=== PATIENT | female | born 1980 | race Caucasian/White ===

== ENCOUNTER 2016-09-15 18:37 | Emergency (ER) | payer MEDICAID ==
[2016-09-15 19:28] LABS: BASOPHILS 0 % (0-2); EOSINOPHILS 0.1 % (0-7); HEMATOCRIT 35.6 % (36.0-48.0); HEMOGLOBIN 12.1 g/dL (12-16); IMMATURE GRANULOCYTES 0.5 % (0-5); LYMPHOCYTES 6.3 % (15-50); MCH 32.2 pg (26.0-34.0); MCV 94.7 fL (80.0-100.0); MEAN PLATELET VOLUME 9.1 fL (7.4-10.4); MONOCYTES 7.9 % (2-11); NEUTROPHILS 85.2 % (40-80); PLATELET COUNT 238 10x3/uL (130-400); RBC 3.76 10x6/uL (4.00-5.40); RDW 12.6 % (11.5-14.5); WBC 20.6 10x3/uL (4.8-10.8)
[2016-09-15 22:17] LABS: ALBUMIN 2.9 g/dL (3.4-5.0); ALKALINE PHOSPHATASE 71 U/L (46-116); ALT (SGPT) 15 U/L (10-68); BILIRUBIN - TOTAL 0.24 mg/dL (0.2-1.3); CALC OSMOLALITY 266 mosm/kg (275-300); CARBON DIOXIDE 22.5 mmol/L (21.0-32.0); CHLORIDE - SERUM 102 mmol/L (98-107); CREATININE - SERUM 0.6 mg/dL (0.6-1.3); GLUCOSE 117 mg/dL (74-106); POTASSIUM - SERUM 3.7 mmol/L (3.5-5.1); PROTEIN - SERUM 6.6 g/dL (6.4-8.2); SODIUM 134 mmol/L (136-145); UREA NITROGEN 7 mg/dL (7-18); eGFR NON AFRICAN AMERICAN > 90 mL/min (90-120)
== END 2016-09-15 22:51 | disposition home or self-care (01) ==
LOC: D.ER 18:37
PROVIDERS: Emergency Medicine; Physician Assistant
DX: O26.892 Other specified pregnancy related conditions, second trimester (principal); Z3A.19 19 weeks gestation of pregnancy; R05 Cough; R50.9 Fever, unspecified; F17.200 Nicotine dependence, unspecified, uncomplicated

== ENCOUNTER → 2016-11-17 11:52 | Outpatient (CLI) | payer MEDICAID | END | disposition home or self-care (01) | LOC: D.LDO 11:52 | DX: O36.8130 Decreased fetal movements, third trimester, not applicable or unspecified (principal); Z3A.28 28 weeks gestation of pregnancy ==

== ENCOUNTER 2017-02-02 05:00 | Inpatient (IN) | payer MEDICAID ==
[2017-02-02] VITALS (11 sets, daily range): BP systolic 108–139; BP diastolic 61–78; BMI 30.9
[2017-02-02] MEDS ORDERED: PRENATAL COMPLE1 TAB PO (05:43)
[2017-02-02 06:18] LABS: HEMATOCRIT 35.9 % (36.0-48.0); MCH 30.4 pg (26.0-34.0); MCHC 33.4 g/dL (31.0-37.0); MCV 90.9 fL (80.0-100.0); MEAN PLATELET VOLUME 10.6 fL (7.4-10.4); RBC 3.95 10x6/uL (4.00-5.40); RDW 13.5 % (11.5-14.5); WBC 10.7 10x3/uL (4.8-10.8)
[2017-02-02 06:29] LABS: APPEARANCE HAZY (CLEAR); BILIRUBIN NEGATIVE (NEGATIVE); COLOR YELLOW (YELLOW); GLUCOSE NEGATIVE (NEGATIVE); KETONE NEGATIVE (NEGATIVE); NITRITE NEGATIVE (NEGATIVE); PROTEIN NEGATIVE (NEGATIVE); UROBILINOGEN NORMAL (NORMAL)
[2017-02-02 06:30] LABS: AMORPHOUS SEDIMENT <1+ /lpf (NONE SEEN); BACTERIA MANY /hpf (NONE SEEN); GRANULAR CAST RARE /lpf (NONE SEEN); MUCUS <1+ /lpf (NONE SEEN); WHITE CELLS - URINE 0-5 /hpf (0-5)
[2017-02-02 20:31] LABS: BASOPHILS 0.1 % (0-2); EOSINOPHILS 0.1 % (0-7); HEMATOCRIT 29.4 % (36.0-48.0); HEMOGLOBIN 9.7 g/dL (12-16); IMMATURE GRANULOCYTES 0.3 % (0-5); LYMPHOCYTES 11.8 % (15-50); MCH 30.7 pg (26.0-34.0); MEAN PLATELET VOLUME 10.4 fL (7.4-10.4); MONOCYTES 11.3 % (2-11); NEUTROPHILS 76.4 % (40-80); PLATELET COUNT 224 10x3/uL (130-400); RBC 3.16 10x6/uL (4.00-5.40); RDW 13.7 % (11.5-14.5)
[2017-02-02 20:47] LABS: APTT 28.2 SECONDS (22.8-39.4); INR 1.11 (0.85-1.17); PROTIME 14.2 SECONDS (11.6-15.0)
[2017-02-02 21:02] LABS: D-DIMER-QUANTITATIVE 9.69 ug/mLFEU (0.20-0.54)
--- NOTE | 2017-02-02 21:37 | NUR ---
NS WITH 20 UNITS PITOCIN HUNG TO INFUSE VIA PUMP AT 125 CC/HR TO EXISTING 18 G IN LEFT HAND. NO REDNESS OR EDEMA NOTED TO SITE.
--- NOTE | 2017-02-02 21:38 | NUR ---
200 ML CONCENTRATED ROYAL URINE EMPTIED FROM GUZMAN CATH
--- NOTE | 2017-02-02 21:47 | NUR ---
CHIRAG CARE PERFORMED. FUNDUS FIRM AND ML @ U/-3. LOCHIA RUBRA SCANT. PT CLEANED WITH WARM WET WASHCLOTHES. CHUX CHANGED. CHIRAG PADS CHANGED.
--- NOTE | 2017-02-02 21:55 | NUR ---
FRESH SPRITE PROVIDED TO PT.
--- NOTE | 2017-02-02 23:00 | NUR ---
RN TO PT BS FOR I&O'S. PT RESTING IN BED IN HIGH FOWLERS POSITION, HOLDING . PT IN NO ACUTE DISTRESS. #3 UNIT OF PRBC'S COMPLETE. I&O'S WNL.
--- NOTE | 2017-02-02 23:05 | NUR ---
PT C/O PAIN, RATES 11/10. REQUESTS MEDICATION DEMEROL 100MG PROVIDED TO PT AT THIS TIME WITH FRESH SPRITE. PT DENIES ANY FURTHER NEEDS. BED IN LOW POSITION, SIDE RAILS UP TIMES 2, CALL LIGHT AND PHONE IN REACH. SO REMAINS AT PT BS FOR SUPPORT AND ASSISTANCE. REMAINS AT PT BS FOR COUPLET CARE. WILL CONT TO MONITOR PT STATUS.
[2017-02-03] VITALS (13 sets, daily range): BP systolic 119–140; BP diastolic 58–83
--- NOTE | 2017-02-03 00:05 | NUR ---
RN TO PT BS TO PERFORM ANAHI. PT RESTING IN BED IN SEMI-FOWLERS POSITION IN NO ACUTE DISTRESS. I&O'S PERFORMED, WNL. FRESH SPRITE AND CRACKERS PROVIDED TO PT. PT DENIES ANY FURTHER NEEDS. BED IN LOW POSITION, SIDE RAILS UP TIMES 2, CALL LIGHT AND PHONE IN REACH. SO REMAINS AT PT BS FOR SUPPORT AND ASSISTANCE. IN OPEN CRIB AT PT BS FOR COUPLET CARE. WILL CONT TO MONITOR PT STATUS.
--- NOTE | 2017-02-03 00:23 | NUR ---
PT IS A 37YO G5 NOW P5 WITH OF VIABLE FEMALE YESTERDAY @ 192. @ 39.1 WKS GESTATION. INFANT WITH TIGHT NUCHAL TIMES 1, CLAMPED AND CUT ON THE FIELD. FIRST DEGREE PERINEAL LACERATION WITH REPAIR. DIFFICULT REMOVAL OF PLACENTA, PLACENTA DELIVERED, NOT INTACT, MANUAL REMOVAL OF PLACENTAL FRAGMENTS BY DR. DILLARD WITH SUBSEQUENT HEMORRHAGE. CYTOTEC 1000MCG GIVEN RECTALLY BY DR. DILLARD AND 3 UNITS OF PRBC'S GIVEN TO PT IN OR DURING PPBTL. AAOX3. HR REGULAR. VS STABLE. ABDOMEN SOFT AND NON TENDER. BS ACTIVE TIMES 4. LAPROSCOPIC INCISIONS NOTED, STERI-STRIPS IN PLACE, NO REDNESS, EDEMA, OR DRAINAGE NOTED TO SITES. FUNDUS FIRM AND ML @ U/-3. LOCHIA RUBRA SMALL. PERINIUM APPEARS TO BE INTACT WITH MINIMAL SWELLING NOTED. GUZMAN IN PLACE AND DRAINING CONCENTRATED ROYAL URINE. OUTPUT WNL AT THIS TIME. 2+ EDEMA NOTED TO LOWER EXTREMITIES BILATERALLY. NO SWELLING NOTED TO UPPER EXTREMITIES BILATERALLY. 18G IV IN PLACE TO LEFT HAND, NS WITH 20 UNITS PITOCIN INFUSING VIA PUMP AT 125CC/HR, NO REDNESS OR EDEMA NOTED TO SITE. 18G SL IN PLACE TO RIGHT AC, FLUSHED WITH 5 CC NS WITHOUT DIFFICULTY. PT TOLERATING CLEAR LIQUIDS AND HAVE ADVANCED PT TO ATTEMPTING SALTINES. PT DENIES ANY NEEDS AT THIS TIME. BED IN LOW POSITION, SIDE RAILS UP TIMES 2, CALL LIGHT AND PHONE IN REACH. WILL CONT TO MONITOR PT STATUS.
[2017-02-03 01:03] LABS: HEMATOCRIT 33.1 % (36.0-48.0); HEMOGLOBIN 11.3 g/dL (12-16); MCH 30.7 pg (26.0-34.0); MCHC 34.1 g/dL (31.0-37.0); MCV 89.9 fL (80.0-100.0); MEAN PLATELET VOLUME 10.2 fL (7.4-10.4); PLATELET COUNT 199 10x3/uL (130-400); RBC 3.68 10x6/uL (4.00-5.40); RDW 13.7 % (11.5-14.5); WBC 21.1 10x3/uL (4.8-10.8)
[2017-02-03 01:09] LABS: APTT 28.2 SECONDS (22.8-39.4); INR 1.12 (0.85-1.17); PROTIME 14.3 SECONDS (11.6-15.0)
--- NOTE | 2017-02-03 01:11 | NUR ---
RN TO PT BS FOR I&O'S AND VS. PT RESTING IN BED IN HIGH FOWLERS POSITION, . PT IN NO ACUTE DISTRESS. I&O'S WNL. VS WNL. FRESH SPRITE PROVIDED TO PT. PT DENIES ANY FURTHER NEEDS. BED IN LOW POSITION, SIDE RAILS UP TIMES 2, CALL LIGHT AND PHONE IN REACH. SO REMAINS AT PT BS FOR SUPPORT AND ASSISTANCE. REMAINS AT PT BS FOR COUPLET CARE. WILL CONT TO MONITOR PT STATUS.
[2017-02-03 01:28] LABS: LYMPHOCYTES 7 % (15-50); MONOCYTES 3 % (2-11); NEUTROPHILS 85 % (40-80); PLATELET ESTIMATE DECREASED
--- NOTE | 2017-02-03 01:48 | NUR ---
RN CALLED TO PT BS. PT REQUESTS INFANT BE TRANSPORTED TO NURSERY TO ALLOW PT TO REST. INFANT TRANSPORTED TO NURSRY VIA OPEN CRIB. REPORT GIVEN TO NURSERY RN. I&O'S PERFORMED, WILL CONT TO ALLOW PT TO REST. PT DENIES ANY FURTHER NEEDS. BED IN LOW POSITION, SIDE RAILS UP TIMES 2, CALL LIGHT AND PHONE IN REACH. SO REMAINS AT PT BS FOR SUPPORT AND ASSISTANCE. WILL CONT TO MONITOR PT STATUS.
--- NOTE | 2017-02-03 01:51 | NUR ---
0100 REPEAT LAB WNL. WILL REDRAW IN AM.
--- NOTE | 2017-02-03 03:01 | NUR ---
RN CALLED TO PT BS WITH C/O PAIN, RATES 02/10, PT REQUESTS MEDICATION. DEMEROL 100MG PO PROVIDED TO PT AT THIS TIME WITH FRESH SPRITE. I&O'S PERFORMED, WNL. VS TAKEN AND WNL. CHIRAG CARE PERFORMED. PT CLEANED WITH WET WASHCLOTHES. CHIRAG PADS CHANGED. FUNDUS FIRM AND ML @ U/-2, LOCHIA RUBRA SMALL. PT DENIES ANY FURTHER NEEDS AT THIS TIME. BED IN LOW POSITION, SIDE RAILS UP TIMES 2, CALL LIGHT AND PHONE IN REACH. SO REMAINS AT PT BS FOR SUPPORT AND ASSISTANCE. WILL CONT TO MONITOR PT STATUS.
--- NOTE | 2017-02-03 04:11 | NUR ---
RN TO PT BS TO HANG NEW BAG OF PITOCIN. PITOCIN HUNG TO INFUSE VIA PUMP AT 125CC/HR. PT RESTING IN BED IN HIGH FOWLERS POSITION INFANT. PT IN NO ACUTE DISTRESS. I&O'S PERFORMED, WNL. VS WNL. PT DENIES ANY NEEDS AT THIS TIME. BED IN LOW POSITION, SIDE RAILS UP TIMES 2, CALL LIGHT AND PHONE IN REACH. SO REMAINS AT PT BS FOR SUPPORT AND ASSISTANCE. REMAINS AT PT BS FOR COUPLET CARE. WILL CONT TO MONITOR PT STATUS.
[2017-02-03 06:11] LABS: BASOPHILS 0 % (0-2); EOSINOPHILS 0 % (0-7); HEMOGLOBIN 10.7 g/dL (12-16); IMMATURE GRANULOCYTES 0.3 % (0-5); LYMPHOCYTES 9.1 % (15-50); MCH 30.8 pg (26.0-34.0); MCHC 34.5 g/dL (31.0-37.0); MCV 89.3 fL (80.0-100.0); MEAN PLATELET VOLUME 10.7 fL (7.4-10.4); MONOCYTES 8.3 % (2-11); NEUTROPHILS 82.3 % (40-80); PLATELET COUNT 194 10x3/uL (130-400); RBC 3.47 10x6/uL (4.00-5.40); RDW 14.1 % (11.5-14.5); WBC 18.7 10x3/uL (4.8-10.8)
--- NOTE | 2017-02-03 06:18 | NUR ---
RN TO PT BS FOR I&O'S. PT RESTING IN BED IN HIGH FOWLERS POSITION IN NO ACUTE DISTRESS. I&O'S PERFORMED, WNL. VS TAKEN AND WNL. B/P STOPPED CYCLING. CHIRAG CARE PERFORMED. PT CLEANED WITH WET WASHCLOTHES, CHUX AND CHIRAG PADS CHANGED. FUNDUS FIRM AND ML @ U/-2, LOCHIA RUBRA SMALL. PT DENIES ANY FURTHER NEEDS AT THIS TIME. BED IN LOW POSITION, SIDE RAILS UP TIMES 2, CALL LIGHT AND PHONE IN REACH. SO REMAINS AT PT BS FOR SUPPORT AND ASSISTANCE. WILL CONT TO MONITOR PT STATUS.
[2017-02-03 06:24] LABS: APTT 29.1 SECONDS (22.8-39.4); INR 1.11 (0.85-1.17); PROTIME 14.1 SECONDS (11.6-15.0)
[2017-02-03 07:25] LABS: RAPID PLASMA REAGIN Non Reactive (Non Reactive)
--- NOTE | 2017-02-03 07:27 | OP ---
PATIENT NAME: MAELIE GOMES MEDICAL RECORD: [id number] :79 LOCATION:[id number] ADMISSION DATE:02/02/17 SURGEON: LA DILLARD MD DATE OF OPERATION: 02/02/2017 Delivery Note Spontaneous vaginal delivery of female infant weighing 8 pounds 8 ounces, 8 and 9 Apgars with epidural anesthesia, first degree midline laceration, repaired with 2-0 chromic suture. Upon delivery of , fundal massage was used to aid in delivery of the placenta. Placenta remained adherent to the uterine wall requiring manual exploration. Placenta was densely adherent, curette was used. The patient was under epidural anesthesia and tolerated the procedure well. Blood loss encountered was 1200 cc. After curetting the uterus and uterine atony resolved. The patient was taken to the OR for her tubal ligation as she had requested. The patient received [address] to the OR and is to receive 2 more units. TRANSINT:[id number] Voice Confirmation ID: [id number] DOCUMENT ID: [id number] LA DILLARD MD at 0727 CC: [id number] DICTATION DATE: 02/02/172129 BASKET OPERATOR: 02/02/17 2343 ADM IN [place] [id number] [place] [address]
--- NOTE | 2017-02-03 07:30 | NUR ---
Pt is awake and preparing to eat regular diet tray. Pain meds given as charted on emar. Gentle fundal massage with fundus firm at u/1, scant bleeding noted to fanny pad and no clots with massage. Sykes to bedside drain with 150ml clear urine noted. 20units pitocin in 1000NS continue to infuse per orders. Pt denies any needs at this time. Sig other at bedside.
--- NOTE | 2017-02-03 08:00 | NUR ---
PAIN REASSESSMENT CHARTED ON EMAR. PT SITTING UP IN BED ATTEMPTING TO PUT INFANT TO BREAST, DENIES NEED FOR ASSISTANCE. WILL CALL NURSE WHEN FINISHED WITH INFANT FEEDING
--- NOTE | 2017-02-03 10:20 | NUR ---
DR DILLARD NOTIFIED AND ORDERS VERIFIED, MAY REMOVE GUZMAN CATH AT THIS TIME AND D/C ONE IV SITE, SALINE LOCK CURRENT IV SITE.
--- NOTE | 2017-02-03 11:30 | NUR ---
Pain med given as charted on emar per pt request for abd cramping/pressure that she rates at 7/10. IV to left hand saline locked and right side saline lock removed with cath intact. Fundus firm with massage at u/1, light bleeding noted to fanny pad which are changed by this rn. Bowman cath with 250ml clear urine noted in collection bag. Pt ask that wait until pain med has taken some effect before removing bowman so that she will feel better about getting out of bed. Spouse at bedside, side rails up x 2 with phone and call light in reach.
--- NOTE | 2017-02-03 13:00 | NUR ---
large cup of ice with lemon [place] soda provided per request. no other needs at this time. brought to room for feeding at this time.
--- NOTE | 2017-02-03 15:43 | NUR ---
Pain med given as charted on emar, rates pain at 8/10. Sykes cath remains in place with 300ml noted to collection canister. Pt states that when her returns she wants to get up and possibly shower but ask that lights be turned out at this time so she can try and rest. Fundus firm with massage with no clots and scant bleeding noted to fanny pad. Pt moving well in bed without assistance and turns self to right tilt at this time. Side rails up x 2, phone and call light in reach. lights out as she requested. Infant in nursery at this time.
--- NOTE | 2017-02-03 16:30 | NUR ---
Pain reassesment, pt resting on her right side with eyes closed and resp even. call light in reach.
--- NOTE | 2017-02-03 17:15 | NUR ---
Visiting with her family and kids. Rates pain at 3-4/10 fundus firm at u/1 with scant bleeding noted to fanny pad. Denies needs at this time states understanding that she needs to get up and out of bed but can visit with her family at this time.
--- NOTE | 2017-02-03 19:50 | NUR ---
RN TO PT BS FOR ANAHI. PT RESTING IN BED IN HIGH FOWLERS POSITION, . PT IN NO ACUTE DISTRESS. PT IS A 37YO G5 NOW P5 WITH OF VIABLE FEMALE YESTERDAY @ 192. INFANT @ 39.1 WKS GESTATION. WITH TIGHT NUCHAL TIMES 1, CLAMPED AND CUT ON THE FIELD. FIRST DEGREE PERINEAL LACERATION WITH REPAIR. DIFFICULT REMOVAL OF PLACENTA, PLACENTA DELIVERED, NOT INTACT, MANUAL REMOVAL OF PLACENTAL FRAGMENTS BY DR. DILLARD WITH SUBSEQUENT HEMORRHAGE. CYTOTEC 1000MCG GIVEN RECTALLY BY DR. DILLARD AND 3 UNITS OF PRBC'S GIVEN TO PT IN OR DURING PPBTL. AAOX3. HR REGULAR. VS STABLE. ABDOMEN DISTENDED AND TENDER. BS HYPOACTIVE TIMES 4. LAPROSCOPIC INCISION NOTED AT UMBILICUS, STERI STRIP IN PLACE. NO REDNESS, EDEMA, OR DRAINAGE NOTED TO SITE. FUDUS FIRM AND ML @ U/-2. LOCHIA SEROUSA SMALL. PERINIUM APPEARS TO BE INTACT WITH MINIMAL SWELLING NOTED. GUZMAN IN PLACE AND DRAINING CONCENTRATED ROYAL URINE. REMOVED AT THIS TIME, TIP INTACT. 2000ML EMPTIED FROM GUZMAN BAG. 2+ EDEMA NOTED TO LOWER EXTREMITIES BILATERALLY. NO SWELLING NOTED TO UPPER EXTREMITIES. 18G SL IN PLACE TO LEFT HAND, FLUSHED AT THIS TIME WITH 5 CC NS WITHOUT DIFFICULTY, NO REDNESS, EDEMA, OR DRAINAGE NOTED TO SITE. PT TOLERATING REGULAR DIET AND LIQUIDS. PT C/O PAIN, RATES 7.10, REQUESTS MEDICATION. DEMEROL 100MG PROVIDED AT THIS TIME. POC DISCUSSED WITH PT AND SO. QUESTIONS ANSWERED. WILL CONT TO MONITOR PT STATUS AND PREPARE TO AMBULATE. BED IN LOW POSITION, SIDE RAILS AND PHONE IN REACH. SO REMAINS AT PT BS FOR SUPPORT AND ASSISTANCE. INFANT REMAINS AT PT BS FOR COUPLET CARE.
--- NOTE | 2017-02-03 20:53 | NUR ---
RN TO PT BS. PT AMBULATED TO BR WITH MODERATE ASSISTANCE. PT ABLE TO VOID. PT CLEANED SELF WITH WASHCLOTHES AND BETADINE WASHCLOTHES. CHIRAG PAD AND PANTIES PLACED. CLEAN GOWN PLACED. COMPLETE LINEN CHANGE TO BED. PT DENIES ANY FUTHER NEEDS AT THIS TIME. BED IN LOW POSITION, SIDE RAILS UP TIMES 2, CALL LIGHT AND PHONE IN REACH. FAMILY AT PT BS TIMES 3 FOR SUPPORT AND ASSISTANCE. INFANT REMAINS AT PT BS FOR COUPLET CARE. WILL CONT TO MONITOR PT STATUS.
--- NOTE | 2017-02-03 23:20 | NUR ---
SHIFT REPORT FROM NICKOLAS REID RN
--- NOTE | 2017-02-04 00:20 | NUR ---
ROUNDS MADE, PT UP IN BR AT THIS TIME, PT REQUESTS PAIN MED, PT INST TO USE CALL LIGHT WHEN BACK TO BED, PT VERBALIZES UNDERSTANDING, BABY IN OPEN CRIB CART AND FOB IN ROOM
[2017-02-04 00:31] VITALS: BP 128/58
--- NOTE | 2017-02-04 00:31 | NUR ---
PT BACK TO BED, VS OBTAINED, ADM DEMEROL PO PER MD ORDERS, SEE EMAR, PT DENIES FURTHER NEEDS, BABY TO NSY VIA OPEN CRIB CART PER THIS RN, FOB RESTING ON COUCH
--- NOTE | 2017-02-04 02:05 | NUR ---
PT AROUSES TO OPENING OF DOOR, RATES ABD PAIN 2/10, DENIES NEEDS AT THIS TIME, FOB ASLEEP ON COUCH
--- NOTE | 2017-02-04 04:27 | NUR ---
PT AWAKE, HOLDING BABY, C/O ABD CRAMPING, ADM DEMEROL PO PER MD ORDERS, SEE EMAR, SERVED FRESH H20, DENIES FURTHER NEEDS, FOB ASLEEP ON COUCH
--- NOTE | 2017-02-04 06:40 | NUR ---
PT AWAKE, RATES PAIN2/10, SALINE LOCK FLUSHED WITH 10 MLS OF NS WITH NO DIFFICULTY, PT DENIES NEEDS AT THIS TIME, FOB ASLEEP ON COUCH
[2017-02-04 07:24] VITALS: BP 133/71
--- NOTE | 2017-02-04 07:33 | NUR ---
ASSESSMENT DONE. PT SITTING UP IN BED- INFANT AT BREAST. CO PAIN- RATES PAIN AN 8 ON SCALE OF 0-10. CO CRAMPING. STATES DIFFICULTY WALKING- LEGS FEEL SWOLLEN.
--- NOTE | 2017-02-04 08:11 | NUR ---
pain medication given per request- pt requested the dosage that has been taking. pt states that she would rather stay another night. states she does not feel like "is getting around very well" due to legs feeling swollen. noted some edema in lower legs- not much change since arrival date. encouraged up to shower.
--- NOTE | 2017-02-04 08:15 | NUR ---
saline lock removed- cath intact-pressure held and bandaide applied.
--- NOTE | 2017-02-04 08:39 | NUR ---
out of shower- states feels better. up and about in room. linens changed.
--- NOTE | 2017-02-04 09:03 | NUR ---
Lillian Hdz 02/04/17 O: Patient in shower, LC leaves room. Jesse Manuel, CLC
[2017-02-04 12:23] VITALS: BP 119/58
--- NOTE | 2017-02-04 12:27 | NUR ---
co pain- states that thinks might be gas. rates pain a 10 on scale of 0-10. requesting pain medication. warm tea given and encouraged to ambulate in unit. pain med given.
--- NOTE | 2017-02-04 14:30 | NUR ---
AMBULATORY AROUND UNIT- TOLERATED WELL.
--- NOTE | 2017-02-04 16:30 | NUR ---
RESTING IN BED WITH EYES CLOSED. OPENS EYES WHEN NAME CALLED- ENCOURAGED TO WALK AROUND UNIT AGAIN.
--- NOTE | 2017-02-04 17:10 | NUR ---
AMBULATORY IN HALLWAYS. TOLERATING WELL. STATES THAT SHE IS PASSING SOME FLATUS.
[2017-02-04 18:09] VITALS: BP 122/58
--- NOTE | 2017-02-04 18:10 | NUR ---
requesting pain medication. states that cramping- sharp pain. request same dose as has been taking.
--- NOTE | 2017-02-04 19:03 | NUR ---
REPORT REC'D FROM Fatoumata MONIQUE RN. THIS RN RESUMING CARE OF THIS G5 NOW P5. PT REC'D SITTING ON EDGE OF BED CONVERSING WITH S/O AND OTHER VISITOR. DENIES NEEDS AT THIS TIME. WILL CONT TO MONITOR AND ASSIST PRN.
[2017-02-04 19:24] VITALS: BP 139/60
--- NOTE | 2017-02-04 19:24 | NUR ---
RN TO BEDSIDE. PT SITTING ON EDGE OF BED CONVERSING WITH S/O AND OTHER VISITOR. IN VISITORS ARMS RESTING QUIETLY WITH EYES CLOSED, RESPIRATIONS REGULAR AND UNLABORED, NO S/S OF DISTRESS NOTED WITH . PT RATES PAIN 2/10 AT THIS TIME, STATING "I'M NOT IN PAIN, I'M JUST SORE." VSS. FUNDUS FIRM U2 WITH SMALL AMT RUBRA LOCHIA, NO CLOTS PRESENT. PT STATES THAT SHE IS VOIDING WITHOUT DIFFICULTY AND HAS BEEN PASSING FLATUS. STERISTRIP INTACT BELOW UMBILICUS WITH NO DRAINAGE PRESENT. BREATH SOUNDS CLEAR AND EQUAL BILATERALLY, UNLABORED. BOWEL SOUNDS PRESENT AND ACTIVE X4 QUADRANTS. PT STATES THAT SHE HAS NOT HAD BM TODAY. DISCHARGE PLANS DISCUSSED WITH PT AND S/O, VERBALIZES UNDERSTANDING AND AGREEMENT. 1+ BLE EDEMA NOTED, PT REPORTS THAT EDEMA IS IMPROVED FROM YESTERDAY. NO LAIBIAL SWELLING NOTED. PT STATES THAT SHE IS USING PERIBOTTLE AND TUX WIPES WITH VOIDS. LIFTING RESTRICTIONS, INCISIONAL CARE, AND S/S OF INFECTION REVIEWED WITH PT FOR D/C, VERBALIZES UNDERSTANDING. S/O SUPPORTIVE AND ATTENTATIVE TO PT AND . BED IN LOW POSITION WITH UPPER SIDE RAILS RAISED X2. CL AND PHONE WITHIN REACH. WILL CONT TO MONITOR AND ASSIST PRN.
--- NOTE | 2017-02-04 20:29 | NUR ---
RN TO BEDSIDE. PT STATES THAT SHE IS GOING TO AMBULATE IN [place]. MILK OF MAG GIVEN PER ORDERS. SIMETHICONE GIVEN PER REQUEST FOR "GAS PAINS." ENCOURAGED TO AMBULATE ON UNIT FREQUENTLY ALSO TO HELP RELIEVE GAS PAINS, VERBALIZES UNDERSTANDING. STATES THAT SHE WALKED EARILER AND HAD "A LOT OF RELIEF FROM PAINS." S/O REMAINS AT BEDSIDE SUPPORTIVE AND ATTENTIVE TO PT AND INFANT. AT BEDSIDE RESTING QUEITLY IN OPEN CRIB, RESPIRATIONS REGULAR AND UNLABORED, NO S/S OF DISTRESS NOTED. BED IN LOW POSITION WITH UPPER SIDE RAILS RAISED X2. CL AND PHONE WITHIN REACH. WILL CONT TO MONITOR AND ASSIST PRN.
--- NOTE | 2017-02-04 21:10 | NUR ---
PT AMBULATING IN [place] WITH SPOUSE.
--- NOTE | 2017-02-04 21:47 | NUR ---
PT CALLS VIA CL. REQUESTS PAIN MEDICATION. PAIN 8/10, ABD SORENESS AND CRAMPING AND ACHING. PT STATEST THAT SHE AMBULATED ON UNIT FOR ABOUT 20 MINUTES AND PAIN INCREASED FOLLOWING ACTIVITY. DEMEROL 100 MG PO GIVEN PER ORDER AND PT REQUEST. LIGHTS TURNED OFF FOR PT TO REST. S/O REMAINS AT BEDSIDE SUPPORTIVE AND ATTENTIVE TO PT. IN NBN AT THIS TIME. BED IN LOW POSITION WITH UPPER SIDE RAILS RAISED X2. CL AND PHONE WITHIN REACH. WILL CONTINUE TO MONITOR AND ASSIST PRN.
--- NOTE | 2017-02-04 22:29 | NUR ---
PAIN REASSESSMENT COMPLETED. PT RESTING WITH EYES CLOSED. RESPIRATIONS REGULAR AND UNLABORED. NO S/S OF DISTRESS NOTEDS. S/O RESTING ON COUCH AT BEDSIDE. BED IN LOW POSITION WITH UPPER SIDE RAILS RAISED X2. CL AND PHONE WITHIN PT REACH. WILL CONT TO MONITOR AND ASSIST PRN.
--- NOTE | 2017-02-04 22:50 | NUR ---
INFANT BROUGHT TO PT FOR BREAST FEEDING. ID BANDS MATCHED. PAIN 2-310 AT THIS TIME. DENIES NEED FOR INTERVENTION. INFANT HANDED TO PT. DENIES NEED FOR ASSISTANCE. S/O REMAINS AT BEDSIDE RESTING ON COUCH. BED IN LOW POSITION WITH UPPER SIDE RAILS RAISED X2. CL AND PHONE WITHIN REACH. PT STATES THAT SHE WILL CALL IF SHE NEEDS ASSISTANCE.
[2017-02-05 00:14] VITALS: BP 121/58
--- NOTE | 2017-02-05 00:14 | NUR ---
RN TO BEDSIDE FOR ROUNDS. PT BONDING WITH INFANT. REPORTS THAT FINISHED NURSING AT 0000. VSS. FUNDUS REMAINS FIRM, U2 MIDLINE, SMALL AMT RUBRA LOCHIA NO CLOTS PRESENT. DENIES NEEDS AT THIS TIME. S/O REMAINS IN ROOM RESTING ON COUCH AT BEDSIDE. BED IN LOW POSITION WITH UPPER SIDE RAILS RAISED X2. CL AND PHONE WITHIN REACH. INFANT BACK TO NBN PER PT REQUEST. WILL CONT TO MONITOR AND ASSIST PRN.
--- NOTE | 2017-02-05 02:00 | NUR ---
RN TO BEDSIDE FOR ROUNDS. PT LAYING ON RIGHT SIDE IN SEMI FOWLERS POSITIONS. RESPIRATIONS REGULAR AND UNLABORED. NO S/S OF DISTRESS NOTED. S/O REMAIN RESTING ON COUCH AT BEDSIDE. BED IN LOW POSITION WITH UPPER SIDE RAILS RAISED X2. CL AND PHONE WITHIN REACH. INFANT IN NBN. WILL CONT TO MONITOR AND ASSIST PRN.
--- NOTE | 2017-02-05 02:35 | NUR ---
CALLED TO ROOM VIA CL. PT SITTING ON EDGE OF BED. STATES THAT SHE JUST GOT UP TO VOID. PAIN 8/10, ABD CRAMPING AND SORENESS AND BACK ACHE. REQUESTS DEMEROL, GIVEN PER REQUEST. WARMED BLANKET FROM WARMERS ALSO PLACED TO PT'S LOWER BACK FOR COMFORT, RELIEF VERBALIZED. ICE WATER GIVEN. PT DENIES ADDITIONAL NEEDS. S/O REMAINS AT BEDSIDE RESTING ON COUCH. BED IN LOW POSITION WITH UPPER SIDE RAILS RAISED X2. CL AND PHONE WITHIN REACH. WILL CONT TO MONITOR AND ASSIST PRN.
--- NOTE | 2017-02-05 03:10 | NUR ---
RN TO BEDSIDE WITH . ID BANDS MATCHED. PAIN REASSESSMENT COMPLETED. PAIN 05/13. DENIES NEEDS AT THIS TIME. BED IN LOW POSITION WITH UPPER SIDE RAIL RAISED X2. CL AND PHONE WITHIN REACH. WILL CONT TO MONITOR AND ASSIST PRN.
--- NOTE | 2017-02-05 04:20 | NUR ---
RN TO BEDSIDE FOR ROUNDS AND V/S. PT CONTINUING TO BREAST FEED . REQUESTS THAT V/S BE TAKEN ONCE FINISHED NURSING. PAIN 2/10, ABD CRAMPING AT THIS TIME. DENIES NEED FOR INTERVENTION. DENIES NEEDS AT THIS TIME. S/O REMAINS ON COUCH RESTING AT BEDSIDE. INSTRUCTED TO NOTIFY RN WHEN SHE COMPLETES FOR V/S, VERBALIZES UNDERSTANDING. BED IN LOW POSITION WITH UPPER SIDE RAILS RAISED X2. CL AND PHONE WITHIN REACH. WILL CONT TO MONITOR AND ASSIST PRN.
[2017-02-05 04:47] VITALS: BP 125/59
--- NOTE | 2017-02-05 04:47 | NUR ---
PT CALLS VIA CL. RN TO BEDSIDE. PT COMPLETED BREAST FEEDING. PAIN 1-2/10 AT THIS TIME. VSS. FUNDUS FIRM, U2 AND MIDLINE WITH SMALL AMT RUBRA LOCHIA, NO CLOTS. DENIES NEEDS AT THIS TIME. TAKEN TO NBN PER PT REQUEST FOR PT TO REST. S/O REMAINS AT BEDSIDE, CONVERSING WITH PT, SUPPORTIVE AND ATTENTATIVE. BED IN LOW POSITION WITH UPPER SIDE RAILS RAISED X2. CL AND PHONE WITHIN REACH. WILL CONT TO MONITOR AND ASSIST PRN.
--- NOTE | 2017-02-05 07:20 | NUR ---
AM ASSESSMENT COMPLETED, SEE FLOWSHEET.
[2017-02-05 07:30] VITALS: BP 139/73
--- NOTE | 2017-02-05 07:40 | NUR ---
DR. DILLARD ON UNIT, ROUNDS MADE. SPEAKING WITH PT, REGARDING PAIN CONTROL, WILL ORDER IBUPROFEN 600 MG PO EVERY 6 HOURS FOR C/O PAIN, FOR PT TO TRY BEFORE SHE IS DISCHARGED HOME. PT AGREES.
--- NOTE | 2017-02-05 07:50 | NUR ---
TO PT'S ROOM, PT IS SITTING UP IN THE BED . SIG OTHER AT BEDSIDE. PT HAS BREAKFAST TRAY ON BEDSIDE TABLE. PT DENIES OTHER NEEDS AT THIS TIME. SR UP X 2, CALL LIGHT AND PHONE WITHIN REACH.
[2017-02-05] MEDS ORDERED: IBUPROFEN600 MG PO (09:39)
--- NOTE | 2017-02-05 09:43 | NUR ---
Lillian Hdz 02/05/17 LE@8:30 S: Patient states, " is going fine, sore due to tubal, has been trying different positions because baby tends to like the left breast better then that right breast. O: Patient standing up next to bed by in crib, FOB on sofa watching television. Praised for . does take time and patience in the beginning. It's important to feed infant on demand when showing feeding cues. Explained feeding cues, benefits of skin to skin, and breast milk composition. It is normal for infant to want to feed every 2-3 hours during the day and 3-4 hours at night. Feeding on demand will help with establishing your milk supply. Supply and demand what infant takes out your body will make more of. Showed patient different positions on how to hold for feedings. Provided and explained handouts on feeding cues, positions for , waking a sleeping baby, engorgement, hand expression, what to expect the first week, and breast milk composition. Asked if her nipples are sore, patient state, "No, they are fine." Encouraged to continue to feed infant on demand when showing feeding cues. Asked if any questions, concerns, or needs, all declined. Will follow up. A: Patient appears confident with . P: Continue to feed on demand. Jesse Manuel. CLC
--- NOTE | 2017-02-05 12:00 | NUR ---
PT HAS REQUESTED PAIN MEDICATION, STATES "THE IBUPROFEN ALONG WITH THE DEMEROL HAS REALLY HELPED, BUT I AM AFRAID I'LL START HURTING AGAIN". SEE EMAR FOR ALL MEDS ADM BY THIS RN. PT IS INFANT AT THIS TIME. SR UP X2, CALL LIGHT AND PHONE WITHIN REACH. SIG OTHER AT BEDSIDE.
--- NOTE | 2017-02-05 12:45 | NUR ---
DISCHARGE INSTRUCTIONS EXPLAINED TO PT AND SIG OTHER. COPIES OF D/C INSTRUCTIONS GIVEN TO PT, ALONG WITH INFORMATION SHEETS, INSTRUCTIONS, AND PRESCRIPTION FOR IBUPROFEN 800 MG. PT DENIES QUESTIONS. PREPARING FOR DISCHARGE.
--- NOTE | 2017-02-05 13:00 | NUR ---
PT TAKEN OUT BY WHEELCHAIR, WITH INFANT IN CARSEAT BEING HELD BY MOM. VOLUNTEER TAKES PT OUT TO PRIVATE VEHICLE DRIVEN BY PT'S SIG OTHER.
== END 2017-02-05 13:00 | disposition home or self-care (01) | DRG 767 ==
LOC: D.LD 05:00
PROVIDERS: ADMIT Obstetrics & Gynecology
PROC: 0UB70ZZ Excision of Bilateral Fallopian Tubes, Open Approach (ICD-10-PCS; 2017-02-02)
PROC: 10907ZC Drainage of Amniotic Fluid, Therapeutic from Products of Conception, Via Natural or Artificial Opening (ICD-10-PCS; 2017-02-02)
PROC: 3E0P3VZ Introduction of Hormone into Female Reproductive, Percutaneous Approach (ICD-10-PCS; 2017-02-02)
PROC: 0HQ9XZZ Repair Perineum Skin, External Approach (ICD-10-PCS; 2017-02-02)
PROC: 10E0XZZ Delivery of Products of Conception, External Approach (ICD-10-PCS; principal; 2017-02-02 12:00)
DX: O69.1XX0 Labor and delivery complicated by cord around neck, with compression, not applicable or unspecified (principal); O72.0 Third-stage hemorrhage; Z3A.39 39 weeks gestation of pregnancy; Z37.0 Single live birth; O70.0 First degree perineal laceration during delivery

== ENCOUNTER → 2017-09-08 13:23 | Outpatient (CLI) | payer MEDICAID ==
[2017-02-02 05:43] VITALS: BMI 30.9
[~2017-09-08 13:23] MED LIST: IBUPROFEN600 MG PO; PRENATAL COMPLE1 TAB PO
[2017-09-09 07:39] LABS: IMMUNOGLOBULIN A 207 mg/dL (87-352)
[2017-09-10 14:26] LABS: IGG SUBCLASS 1 778 mg/dL (248-810); IGG SUBCLASS 2 229 mg/dL (130-555); IGG SUBCLASS 3 46 mg/dL (15-102); IGG SUBCLASS 4 47 mg/dL (2-96)
== END | disposition home or self-care (01) ==
LOC: D.LAB 13:00 → D.RT 14:00
PROVIDERS: Internal Medicine Pulmonary Disease
DX: J45.909 Unspecified asthma, uncomplicated (principal)

== ENCOUNTER → 2018-07-20 13:05 | Outpatient (CLI) | payer MEDICAID ==
[2017-02-02 05:43] VITALS: BMI 30.9
[2018-07-20 14:28] LABS: BASOPHILS 0.1 % (0-2); EOSINOPHILS 0.5 % (0-7); HEMATOCRIT 40.9 % (36.0-48.0); HEMOGLOBIN 13.7 g/dL (12-16); IMMATURE GRANULOCYTES 0.1 % (0-5); LYMPHOCYTES 21.2 % (15-50); MCH 31.1 pg (26.0-34.0); MCHC 33.5 g/dL (31.0-37.0); MEAN PLATELET VOLUME 9.1 fL (7.4-10.4); MONOCYTES 9.5 % (2-11); NEUTROPHILS 68.6 % (40-80); RDW 13.5 % (11.5-14.5); WBC 9.3 10x3/uL (4.8-10.8)
[2018-07-20 14:29] LABS: PLATELET COUNT 252 10x3/uL (130-400)
== END | disposition home or self-care (01) ==
LOC: D.RT 06-16 14:00 → D.RAD 06-16 14:45 → D.LAB 06-16 15:00 → D.RAD 06-22 14:00 → D.RT 13:00
PROVIDERS: ATTEND Internal Medicine Pulmonary Disease
DX: J45.909 Unspecified asthma, uncomplicated (principal)

== ENCOUNTER → 2018-11-09 09:57 | Outpatient (CLI) | payer MEDICAID ==
[2017-02-02 05:43] VITALS: BMI 30.9
[2018-11-10 13:12] LABS: ANA REFLEX - DIRECT Negative (Negative)
== END | disposition home or self-care (01) ==
LOC: D.RAD 09:57
PROVIDERS: ATTEND Internal Medicine Pulmonary Disease
DX: J44.9 Chronic obstructive pulmonary disease, unspecified (principal)

== ENCOUNTER 2019-01-25 09:16 | Day surgery (SDC) | payer MEDICAID ==
[~2019-01-25] VITALS: Ht 170.2 cm; Wt 72.7 kg
[2019-01-25 09:38] LABS: BASOPHILS 0.1 % (0-2); EOSINOPHILS 0.8 % (0-7); HEMATOCRIT 38.3 % (36.0-48.0); HEMOGLOBIN 13.2 g/dL (12-16); LYMPHOCYTES 26.3 % (15-50); MCH 31.5 pg (26.0-34.0); MCHC 34.5 g/dL (31.0-37.0); MCV 91.4 fL (80.0-100.0); MEAN PLATELET VOLUME 8.9 fL (7.4-10.4); MONOCYTES 9.1 % (2-11); NEUTROPHILS 63.7 % (40-80); PLATELET COUNT 305 10x3/uL (130-400); RBC 4.19 10x6/uL (4.00-5.40); RDW 13.7 % (11.5-14.5); WBC 7.4 10x3/uL (4.8-10.8)
[2019-01-25 09:42] LABS: APTT 28.2 SECONDS (22.8-39.4); INR 0.91 (0.85-1.17); PROTIME 11.8 SECONDS (11.6-15.0)
[2019-01-25] MEDS ORDERED: ZOLOFT50 MG PO (10:33)
[2019-01-25] MEDS ORDERED: LAMICTAL100 MG PO (10:33)
[2019-01-25] MEDS ORDERED: BUSPAR 15 MG TA15 MG PO (10:33)
[2019-01-25] MEDS ORDERED: SINGULAIR10 MG PO (10:34)
[2019-01-25 10:38] VITALS: BP 114/58; Ht 170.2 cm; Wt 72.7 kg
--- NOTE | 2019-01-25 15:28 | NUR ---
1445 IV COMPLETED & DC'ED WITH CATH INTACT. DRESSING. Edilberto ANTONIO R.N. 1450 DRESSED, AWAKE & ALERT. GIVEN DISCHARGE INFORMATION INCLUDING MED REC, RTC APPT., [facility] DISCHARGE INSTRUCTIONS & POST BRONCHOSCOPY D/C INSTRUCTIONS. PT VOICED UNDERSTANDING. TO PRIVATE CAR PER WHEELCHAIR BY STAFF. HOME WITH MR. GOMES. Edilberto ANTONIO R.N.
[2019-01-25 18:17] LABS: EOS BF 1 %; MACROPHAGES BF 11 %; MESOTHELIALS BF 2 %; NEUT - BF 39 %
[2019-01-26 13:10] LABS: FUNGUS STAIN Final report (())
[2019-01-26 15:10] LABS: ACID FAST SMEAR Negative (()); AFB SPECIMEN PROCESSING Concentration (())
[2019-01-31 15:09] LABS: FUNGUS MYCOLOGY CULTURE Preliminary report (())
[2019-02-03 09:10] LABS: VIRAL - RESULT No virus isolated. (())
== END 2019-01-25 14:50 | disposition home or self-care (01) ==
LOC: D.OPS 09:16
PROVIDERS: ATTEND Internal Medicine Pulmonary Disease
DX: J18.9 Pneumonia, unspecified organism (principal); R91.1 Solitary pulmonary nodule

== ENCOUNTER → 2019-02-03 11:02 | Outpatient (CLI) | payer MEDICAID ==
[2019-01-25 10:38] VITALS: BMI 25.1
[~2019-02-03 11:02] MED LIST changes: +BUSPAR 15 MG TA15 MG PO; +LAMICTAL100 MG PO; +SINGULAIR10 MG PO; +ZOLOFT50 MG PO
== END | disposition home or self-care (01) ==
LOC: D.RAD 11:02
PROVIDERS: ATTEND Internal Medicine Pulmonary Disease
DX: J45.909 Unspecified asthma, uncomplicated (principal)

== ENCOUNTER → 2019-02-08 10:08 | Outpatient (CLI) | payer MEDICAID ==
[2019-01-25 10:38] VITALS: BMI 25.1
== END | disposition home or self-care (01) ==
LOC: D.CT 02-07 13:00
PROVIDERS: ATTEND Internal Medicine Pulmonary Disease
DX: Z87.01 Personal history of pneumonia (recurrent) (principal); J42 Unspecified chronic bronchitis